=== PATIENT | male | born 1945 | race Caucasian/White ===

== ENCOUNTER → 2016-11-18 | Outpatient (CLI) | payer MEDICARE, OTHER ==
[2016-11-18 12:52] LABS: BLOOD UREA NITROGEN 21 MG/DL (7-18); CREATININE FOR GFR 1.24 MG/DL (0.70-1.30); GLOMERULAR FILTRATION RATE > 60.0 (>42)
== END ==
LOC: M LAB 11:49
PROVIDERS: ATTEND Otolaryngology
DX: H90.3 Sensorineural hearing loss, bilateral (principal)

== ENCOUNTER → 2016-11-19 | Outpatient (CLI) | payer MEDICARE, OTHER ==
[~2016-11-19] MED LIST: PROHANCE 279.3MG/ML 15ML VIAL (A9576) As Ordered ONE
--- NOTE | 2016-11-19 10:21 | REP ---
MRI IACs WITHOUT AND WITH CONTRAST: HISTORY: Bilateral hearing loss. CONTRAST: ProHance 15 mL. Areas of increased signal intensity on T2-weighted images are present in the periventricular and subcortical white matter. This represents small vessel ischemic disease. There is no intraparenchymal hemorrhage, infarct, mass or midline shift. There is no abnormal enhancement. The ventricular system and cortical sulci are dilated consistent with mild volume loss. There is no extracerebral collection. There is no cerebellopontine angle mass. The inner ear structures are normal in appearance. The mastoid air cells are clear. Mucosal thickening is present in the maxillary sinuses. IMPRESSION: 1. Small vessel ischemic disease. 2. Mild volume loss. Signed by Heron Sapp MD 11/19/2016 10:28 A
== END ==
LOC: M RAD 08:25
PROVIDERS: ATTEND Otolaryngology
DX: H90.5 Unspecified sensorineural hearing loss (principal)
CPT/HCPCS: 70553; A9576

== ENCOUNTER 2017-01-22 11:21 | Emergency (ER) | payer OTHER ==
[~2017-01-22] VITALS: Ht 172.7 cm; Wt 79.1 kg
[2017-01-22] MEDS ORDERED: VERA24TASA (11:38)
[2017-01-22] MEDS ORDERED: claritin PO (11:38)
[2017-01-22] MEDS ORDERED: INDA125TA (11:38)
[2017-01-22] MEDS ORDERED: ESCI20TA PO (11:38)
[2017-01-22] MEDS ORDERED: MONT10TA2 (11:38)
[2017-01-22] MEDS ORDERED: PANT40TA2 (11:38)
[2017-01-22] MEDS ORDERED: SYMB80INH PO (11:38)
[2017-01-22] MEDS ORDERED: IRBE300T10 (11:38)
[2017-01-22 12:16] LABS: BASO % 0.3 % (0.0-1.0); EOS % 0.2 % (0.0-3.0); IMMATURE GRANULOCYTE % 0.3 % (0-0); LYMPH # 1.7 10^3/uL (1.5-4.5); LYMPH % 18.5 % (24.0-44.0); MEAN CORPUSCULAR HEMOGLOBIN 32.3 pg (27.0-33.0); MEAN CORPUSCULAR VOLUME 95.2 fl (80.0-96.0); MONO # 0.7 10^3/uL (0.0-0.8); MONO % 7.8 % (0.0-5.0); NEUTROPHILS # 6.6 10^3/uL (1.8-7.7); NEUTROPHILS % 72.9 % (36.0-66.0); PLATELET COUNT, AUTOMATED 204 10^3/uL (150-450); RED CELL DISTRIBUTION WIDTH 12.8 % (11.5-14.5); WHITE BLOOD COUNT 9.1 10^3/uL (4.0-10.0)
[2017-01-22] MEDS: NITROGLYCERIN 0.4 MG SUBL TABLET SL PRN ×3 (12:28→12:39)
[2017-01-22 12:29] LABS: INR 0.98
[2017-01-22] MEDS ORDERED: ASPIRIN 81 MG CHEW TABLET PO ONE (12:30)
[2017-01-22 12:39] VITALS: BP 160/89
[2017-01-22] MEDS ORDERED: MORPHINE 4 MG/ML 1ML SYRINGE IV ONE (12:45)
[2017-01-22 12:52] LABS: ALBUMIN 3.9 GM/DL (3.2-5.2); ALBUMIN/GLOBULIN RATIO 1.26 (1.00-1.93); ALKALINE PHOSPHATASE 48 U/L (45-117); ALT/SGPT 27 U/L (12-78); ANION GAP 8 MEQ/L (8-16); AST/SGOT 74 U/L (7-37); BILIRUBIN,DIRECT 0.2 MG/DL (0.0-0.2); BILIRUBIN,TOTAL 0.8 MG/DL (0.2-1.0); BLOOD UREA NITROGEN 20 MG/DL (7-18); CARBON DIOXIDE LEVEL 30 MEQ/L (21-32); CHLORIDE LEVEL 101 MEQ/L (98-107); GLOMERULAR FILTRATION RATE > 60.0 (>42); GLUCOSE, FASTING 107 MG/DL (83-110); POTASSIUM SERUM 3.8 MEQ/L (3.5-5.1); SODIUM LEVEL 139 MEQ/L (136-145)
[2017-01-22] MEDS ORDERED: HEPARIN DRIP 25,000 UNITS in APPROPRIATE DILUENT 1 EA IV SCH (13:03)
[2017-01-22] MEDS ORDERED: HEPARIN SOD (PORCINE) 5000 UNITS/ML VIAL IV ONE (13:15)
[2017-01-22] MEDS ORDERED: CLOPIDOGREL 300 MG TAB (PLAVIX) PO ONE (13:15)
[2017-01-22 13:30] VITALS: BP 150/85
--- NOTE | 2017-01-22 14:21 | REP ---
Chest x-ray: Two views. History: Chest pain. No comparison chest x-ray. Findings: The lungs are symmetrically aerated and free of infiltrate. Pleural angles are sharp. Heart size is normal. The aorta is calcific and tortuous. Pulmonary vasculature is not increased. No significant bony abnormality is seen. Impression: No active disease. Signed by Igor Martin MD 01/22/2017 02:46 P
--- NOTE | 2017-01-23 04:41 | ECGEPIP ---
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
--- NOTE | 2017-01-23 04:44 | ECGEPIP ---
Stationary ECG Study 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
== END 2017-01-22 13:34 | disposition short-term general hospital (02) ==
LOC: M ED 11:21
DX: I21.3 ST elevation (STEMI) myocardial infarction of unspecified site (principal); I10 Essential (primary) hypertension; J45.909 Unspecified asthma, uncomplicated; K21.9 Gastro-esophageal reflux disease without esophagitis; Z79.899 Other long term (current) drug therapy; Z91.018 Allergy to other foods; Z85.46 Personal history of malignant neoplasm of prostate; Z92.3 Personal history of irradiation; Z87.891 Personal history of nicotine dependence

== ENCOUNTER → 2017-01-22 | Outpatient (REF) | payer OTHER ==
[~2017-01-22] MED LIST changes: +ESCI20TA PO; +INDA125TA; +IRBE300T10; +MONT10TA2; +PANT40TA2; -PROHANCE 279.3MG/ML 15ML VIAL (A9576) As Ordered ONE; +SYMB80INH PO; +VERA24TASA; +claritin PO
== END ==
LOC: M LAB REF 11:45
PROVIDERS: ATTEND Nurse Practitioner Family
DX: R07.9 Chest pain, unspecified (principal)

== ENCOUNTER 2017-02-27 12:52 | Outpatient (RCR) | payer OTHER | END 2017-03-12 | LOC: M CR 12:52 | DX: Z51.89 Encounter for other specified aftercare (principal); Z95.5 Presence of coronary angioplasty implant and graft | CPT/HCPCS: 93798 ==

== ENCOUNTER 2017-03-13 09:42 | Outpatient (RCR) | payer OTHER | END 2017-04-09 | LOC: M CR 09:42 | DX: Z51.89 Encounter for other specified aftercare (principal); Z95.5 Presence of coronary angioplasty implant and graft; I25.10 Atherosclerotic heart disease of native coronary artery without angina pectoris | CPT/HCPCS: 93798 ==

== ENCOUNTER → 2021-12-26 | Outpatient (CLI) | payer MEDICARE ==
[~2021-12-26] MED LIST changes: -ESCI20TA PO; +ESCI20TA16 PO; +INDA1.253; -INDA125TA; -IRBE300T10; +IRBE300T7; -MONT10TA2; +MONT10TA97; -PANT40TA2; +PANT40TA29; +VERA240T65; -VERA24TASA
== END ==
LOC: M RAD 13:33
PROVIDERS: ATTEND Internal Medicine Pulmonary Disease
DX: Z87.891 Personal history of nicotine dependence (principal)

== ENCOUNTER → 2023-07-03 | Outpatient (CLI) | payer MEDICARE ==
[~2023-07-03] MED LIST changes: +IRBE300T25; -IRBE300T7
== END ==
LOC: M RAD 07:40
PROVIDERS: ATTEND Internal Medicine Pulmonary Disease
DX: Z87.891 Personal history of nicotine dependence (principal)

== ENCOUNTER → 2023-07-15 | Outpatient (CLI) | payer MEDICARE | LOC: M RAD 15:44 | PROVIDERS: ATTEND Internal Medicine | DX: K40.90 Unilateral inguinal hernia, without obstruction or gangrene, not specified as recurrent (principal) ==

== ENCOUNTER 2023-11-27 10:28 | Day surgery (SDC) | payer MEDICARE ==
[~2023-11-27] VITALS: Ht 172.7 cm; Wt 81.6 kg
[~2023-11-27 10:28] MED LIST changes: +ATOR80TA59 PO; +BUDE10.32 IH; +ELIQ2.5T PO; +EZET10TA21 PO; +HYDR-3490 PO; +IRBE75TA11 PO; +LEXA1TAB PO; +MONT10TA97 PO; +PANT20TA6 PO; +PROA1AER2 INH; +VERA240C PO
[2023-11-27] MEDS ORDERED: LR 1,000 ML IV SCH (11:25)
[2023-11-27] MEDS: ceFAZolin SOD 2 GM in IV 1 EA IV ONE (13:36)
[2023-11-27] MEDS ORDERED: ROCURONIUM BROMIDE 50MG/5ML VIAL As Ordered ONE (13:43)
[2023-11-27] MEDS ORDERED: LIDOCAINE 2% 100MG/5ML SDV (FOR ANES.) As Ordered ONE (13:43)
[2023-11-27] MEDS ORDERED: fentaNYL 100 MCG/2 ML INJECTION As Ordered ONE (13:43)
[2023-11-27] MEDS ORDERED: SUGAMMADEX SODIUM 500 MG/5 ML VIAL (BRIDION) As Ordered ONE (13:43)
[2023-11-27] MEDS ORDERED: MIDAZOLAM INJ 2MG/2ML VIAL As Ordered ONE (13:43)
[2023-11-27] MEDS ORDERED: ONDANSETRON 4MG 2ML VIAL As Ordered ONE (13:43)
[2023-11-27] MEDS ORDERED: propofoL 200 MG/20 ML VIAL As Ordered ONE (13:43)
[2023-11-27] MEDS ORDERED: METOPROLOL 5 MG/5 ML VIAL As Ordered ONE (13:44)
[2023-11-27] MEDS ORDERED: ACETAMINOPHEN 1000MG 100ML IV BAG As Ordered ONE (13:55)
[2023-11-27] MEDS ORDERED: KETOROLAC 60MG 2ML VIAL As Ordered ONE (14:07)
[2023-11-27] MEDS ORDERED: oxyCODONE 5MG TAB PO PRN (14:35)
[2023-11-27] MEDS ORDERED: ONDANSETRON 4MG 2ML VIAL IV PRN (14:35)
[2023-11-27] MEDS ORDERED: fentaNYL 100 MCG/2 ML INJECTION IV PRN (14:35)
[2023-11-27] MEDS ORDERED: NORCO, ANEXSIA 5/325MG TABLET (HYDROcodone/ACETAMINOPHEN) PO PRN (15:50)
[2023-11-27 15:55] VITALS: BP 138/94; TEMP 97.3; O2SAT 98
== END 2023-11-27 16:40 | disposition home or self-care (01) ==
LOC: M SDC 10:28
PROVIDERS: ATTEND Surgery
DX: K40.30 Unilateral inguinal hernia, with obstruction, without gangrene, not specified as recurrent (principal); I48.91 Unspecified atrial fibrillation; I25.10 Atherosclerotic heart disease of native coronary artery without angina pectoris; I25.2 Old myocardial infarction; Z95.5 Presence of coronary angioplasty implant and graft; Z91.018 Allergy to other foods; Z79.899 Other long term (current) drug therapy
CPT/HCPCS: 49650; C1781; J0131; J0665; J0690; J1100; J1885; J2250; J2405; J3010; S2900

== ENCOUNTER 2024-12-06 17:00 | Emergency (ER) | payer MEDICARE ==
[~2024-12-06] VITALS: Ht 170.2 cm; Wt 78.0 kg
[~2024-12-06 17:00] MED LIST changes: -EZET10TA21 PO; +EZET10TA57 PO
[2024-12-06 17:49] LABS: BASO # 0.0 10^3/uL (0.0-0.2); BASO % 0.4 % (0.0-1.0); EOS # 0.1 10^3/uL (0.0-0.5); EOS % 0.9 % (0.0-3.0); LYMPH # 1.7 10^3/uL (1.5-5.0); LYMPH % 22.5 % (24.0-44.0); MONO # 0.6 10^3/uL (0.0-0.8); MONO % 7.4 % (2.0-8.0); NEUTROPHILS # 5.2 10^3/uL (1.5-8.5); NEUTROPHILS % 68.5 % (36.0-66.0); PLATELET COUNT, AUTOMATED 167 10^3/uL (150-450)
[2024-12-06 18:02] LABS: INR 1.23
[2024-12-06 18:16] LABS: CALCIUM LEVEL 9.0 MG/DL (8.3-10.6); CARBON DIOXIDE LEVEL 30.0 MMOL/L (20-31); CHLORIDE LEVEL 102.0 MMOL/L (98-107); CREATININE FOR GFR 1.11 MG/DL (0.70-1.30); GLOMERULAR FILTRATION RATE 67.1 (>35); POTASSIUM SERUM 3.5 MMOL/L (3.5-5.1); SODIUM LEVEL 141.0 MMOL/L (136-145)
[2024-12-06 20:21] LABS: KETONE, URINE AUTO RFX NEGATIVE (NEGATIVE); LEUKOCYTE ESTERASE UR AUTO RFX NEGATIVE (NEGATIVE); NITRITE, URINE AUTO RFX NEGATIVE (NEGATIVE); RBC, URINE AUTO RFX 1 /HPF (0-3); SQUAM EPITHELIAL CELL UR AURFX 0 /HPF (0-6); WBC, URINE AUTO RFX 0 /HPF (0-3)
[2024-12-06 20:45] LABS: MAGNESIUM LEVEL 1.8 MG/DL (1.8-2.4)
[2024-12-06 20:49] LABS: FREE T4 1.24 NG/DL (0.89-1.76)
[2024-12-06 21:27] VITALS: BP 148/78; TEMP 96.8; O2SAT 100
== END 2024-12-06 21:29 | disposition home or self-care (01) ==
LOC: M ED 17:00
DX: I48.91 Unspecified atrial fibrillation (principal); R53.83 Other fatigue; I25.2 Old myocardial infarction; I10 Essential (primary) hypertension; C61 Malignant neoplasm of prostate; F10.10 Alcohol abuse, uncomplicated; Z79.51 Long term (current) use of inhaled steroids; Z79.01 Long term (current) use of anticoagulants; Z79.899 Other long term (current) drug therapy

== ENCOUNTER → 2025-01-14 | Outpatient (CLI) | payer MEDICARE | LOC: M RAD 10:26 | PROVIDERS: ATTEND Internal Medicine Pulmonary Disease | DX: Z87.891 Personal history of nicotine dependence (principal) ==